=== PATIENT | female | born 1965 | race Caucasian/White ===

== ENCOUNTER → 2019-08-28 | Day surgery (SDC) | payer OTHER ==
--- NOTE | 2019-08-29 10:47 | OP ---
DATE OF OPERATION: 08/28/2019 PREOPERATIVE DIAGNOSIS: Abnormal mammography. POSTOPERATIVE DIAGNOSIS: Abnormal mammography. PROCEDURE: Right stereotactic needle biopsy with clip. SURGEON: Miranda Chung MD ANESTHESIA: Local. COMPLICATIONS: None. This is a sterile procedure. INDICATIONS: Patient had a routine screening mammography that noted a suggestion of a mass with a calcification within it in the posterior central right breast. My recommendation was needle biopsy as the ultrasound was negative. The procedure of a right stereotactic needle biopsy with clip was discussed and all the questions answered. PROCEDURE IN DETAIL: Patient was brought to [facility] at [place], laid prone on the [place] table. Using the lateral approach, the density with the calcification in the posterior right breast was identified. A sterile prep was obtained. A target was chosen. There was a positive stroke margin. Using Betadine, 1% lidocaine, a 9-gauge Suros device was used to take several cores from this area. Specimen radiograph showed that 1 core calcification was in the specimen. This was then sent to Pathology for permanent section. A clip was deployed in the area. Hemostasis assured with direct pressure. Because of the bleeding and slight hematoma at the site of the biopsy, I put ice on her as well as Juancho wrap around her. She tolerated procedure well and left the breast imaging center in good condition. We did not do a postoperative x-ray because of the bleeding. MIRANDA CHUNG M.D. [id number]
--- NOTE | 2019-08-29 15:27 | PATH ---
Surgical Pathology Report Patient Name: POLINA GROVE [facility]. Rec. #: [id number] /Age/Gender: 1965 (Age: 54) / F Account: [id number] Location: [facility] Taken: 08/28/2019 Received: 08/28/2019 Reported: 08/29/2019 Physicians: Miranda Galvan M.D. Specimen(s) Received A: RIGHT BREAST SPECIMEN - WITH CALCIFICATIONS B: RIGHT BREAST SPECIMEN - WITHOUT CALCIFICATIONS Clinical History Non-palpable lesion Mammographic findings: Microcalcifications/mass, suspicious Final Diagnosis A. BREAST SPECIMEN, RIGHT, WITH CALCIFICATIONS, STEREOTACTIC CORE BIOPSY: BENIGN BREAST PARENCHYMA WITH STROMAL FIBROSIS, MICROCYSTS, CYSTIC APOCRINE METAPLASIA, AND ASSOCIATED MICROCALCIFICATIONS. SKELETAL MUSCLE PRESENT. B. BREAST SPECIMEN, RIGHT, WITHOUT CALCIFICATIONS, STEREOTACTIC CORE BIOPSY: BENIGN BREAST PARENCHYMA WITH STROMAL FIBROSIS, MICROCYSTS, CYSTIC APOCRINE METAPLASIA, USUAL DUCTAL HYPERPLASIA, AND ASSOCIATED MICROCALCIFICATIONS. SKELETAL MUSCLE AND MICROCALCIFICATIONS WITHIN VASCULAR RODGERS PRESENT. Electronically Signed Comfort Cowan M.D. Gross Description A. Received in formalin labeled "right breast with calcifications," are 8 garcia-yellow, cylindrical portions of fibroadipose tissue ranging from 0.5-2.5 cm in length and averaging 0.2 cm in diameter. The specimens are submitted in toto in one cassette. B. Received in formalin labeled "right breast without calcifications," is a 2.5 x 2.0 x 0.3 cm aggregate of garcia-yellow, irregular to cylindrical portions of fibroadipose tissue admixed with blood clot. The formalin is filtered and the specimen is entirely submitted in one cassette. Time to formalin fixation: 5 minutes Total formalin fixation time: Approximately 6 hours. /08/28/2019 saudi08/28/2019
== END | disposition home or self-care (01) ==
LOC: FMAMMOTONE 10:31
PROVIDERS: ATTEND Surgery
PROC: 0HBT3ZX Excision of Right Breast, Percutaneous Approach, Diagnostic (ICD-10-PCS; principal; 2019-08-28)
DX: N60.11 Diffuse cystic mastopathy of right breast (principal); N60.31 Fibrosclerosis of right breast; N64.89 Other specified disorders of breast; R92.1 Mammographic calcification found on diagnostic imaging of breast
CPT/HCPCS: 19081; 87899; A4648